=== PATIENT | female | born 1985 | race Caucasian/White ===

== ENCOUNTER 2023-10-21 16:55 | Observation (INO) | payer MEDICAID, SELFPAY ==
[2023-10-21] VITALS (11 sets, daily range): BP systolic 106–122; BP diastolic 62–81; PULSE 98–115; RESP 15–23; TEMP 36.6–37.7; O2SAT 97–100; BMI 22.4; BMI 21.6
--- NOTE | 2023-10-21 17:57 | ED.VIS.GI ---
HPI HPI - GI History of Present Illness Chief Complaint: Abd Pain Narrative Narrative: 38-year-old female presenting with abdominal pain. She states in the lower abdomen initially and it radiates to the left lower quadrant and left flank. Patient denies history of kidney stones. She denies dysuria and hematuria. Patient states she has been constipated but did have a bowel movement today. No fevers, chills, nausea, vomiting. Patient has not taken anything for pain or for constipation. No surgical history in her abdomen. She does not believe she is . Patient does state that she is G7, P7 with last August 05, 2022. Patient had some menstrual bleeding which she states stopped on the . She states she does not have normal menstrual cycles because she is breast-feeding. Patient is a transplant from [place] and does not have critical care unit nurse established here. PFSH PFSH Medical History no medical history Home Medications NK 10/21/23 [History Last Taken Unknown] Allergy/AdvReac Type Severity Reaction Status Date / Time egg Allergy Unknown Other Verified 10/21/23 16:55 Social History Smoking Status: Unknown if ever smoked ROS ROS ED Constitutional Constitutional ED: Denies chills, fever(s) or sweats Eyes Eyes: Denies blurry vision or change in vision ENT ENT ED: Denies ear pain or sore throat Cardiovascular Cardiovascular: Denies chest pain, palpitations or racing heartbeat Respiratory/Chest Respiratory/Chest: Denies cough, dyspnea or sputum Gastrointestinal Gastrointestinal: Reports abdominal pain and constipation; Denies diarrhea, nausea or vomiting Genitourinary Genitourinary ED: Denies dysuria, hematuria or urinary frequency Musculoskeletal Musculoskeletal: Denies arthralgias, myalgias or neck pain Integumentary Denies abscess, Abrasions or rash Neurologic Neurologic: Denies headache(s), paresthesias or weakness Psychiatric Psychiatric: Denies anxiety, depression, suicidal ideation or suicidal thoughts Endocrine Endocrinology: Denies polydipsia or polyuria EXAM Physical Exam Const Vital Signs: 10/21/23 16:56 10/21/23 18:12 10/21/23 19:36 Temperature 97.9 F 98.1 F Temperature Source Temporal Oral Pulse Rate 108 H 105 H 100 Respiratory Rate 16 20 H 23 H Blood Pressure 122/76 H 106/65 110/62 Blood Pressure Mean 91 78 78 Blood Pressure Source Monitor Blood Pressure Position Semi-Fowlers Blood Pressure Location Right Arm Pulse Ox 100 98 100 Oxygen Delivery Method Room Air Room Air 10/21/23 19:52 Temperature 98.1 F Temperature Source Pulse Rate 102 H Respiratory Rate 16 Blood Pressure 110/62 Blood Pressure Mean 78 Blood Pressure Source Blood Pressure Position Blood Pressure Location Pulse Ox 100 Oxygen Delivery Method Positive well nourished and well developed General Appearance ED: well developed; Negative for pallor HEENT Reports moist mucous membranes Neck no lymphadenopathy Resp normal respiratory effort Cardio regular rate and regular rhythm GI Palpation: tender epigastric, LLQ and periumbilical Neuro CN's II-XII intact bilaterally Sensorium / Orientation: alert Psych mental status grossly normal Skin no wounds General Skin Exam: Negative for jaundice or pallor MDM MDM MDM Narrative Medical decision making narrative: 38-year-old female presenting with left flank pain. She was not particularly tender on initial examination. We initially were that I do acute abdominal series and some Bentyl however the patient get up to give a urine sample and became orthostatic and fainted. Patient was helped back to the room. She did appear pale. hCG came back with a positive. Given the patient's near syncopal event and positive test who is a high concern for ectopic . I discussed this with Dr. Denise 184. He request that I call back when the ultrasound is performed. CBC shows leukocytosis of 16.7 which is also discussed with him. Hemoglobin stable at 13.7. Platelets are normal at 86. Will obtain a quantitative hCG. Patient was given fentanyl and Zofran. Patient send ultrasound and and the hvac field service technician called me and told me it was a ruptured ectopic prior to the ultrasound read. Dr. Denise was made aware he will come to take the patient to the OR. Patient's hCG came back at 2879. Renal function normal. Potassium slight low at 3.2 patient counseled on all findings. She does understand she will need to go to the OR for ruptured ectopic . Impression: 1. First trimester 2. Ruptured ectopic 3. Leukocytosis 4. Near syncope Lab Data Attestation: I reviewed the patient's lab results. Labs: Laboratory Results - last 24 hr 10/21/23 10/21/23 10/21/23 18:14 18:20 18:33 WBC 16.7 H RBC 4.74 Hgb 13.7 Hct 41.0 MCV 86.5 MCH 28.9 MCHC 33.4 RDW Std Deviation 41.5 RDW Coeff of Esau 13.2 Plt Count 256 MPV 10.2 Immature Gran % (Auto) 0.400 Neut % (Auto) 78.6 H Lymph % (Auto) 14.9 L [place] % (Auto) 4.8 Eos % (Auto) 0.9 Baso % (Auto) 0.4 Absolute Neuts (auto) 13.1 H Absolute Lymphs (auto) 2.48 Nucleated RBC % 0 Sodium 138 Potassium 3.2 L Chloride 106 Carbon Dioxide 24.0 Anion Gap 8 BUN 10 Creatinine 0.79 Estim Creat Clear Calc 86.03 Est GFR (MDRD) Af Amer 104 Est GFR (MDRD) Non-Af 86 BUN/Creatinine Ratio 12.6 Glucose 128 H Calcium 9.8 Total Bilirubin 1.00 AST 14 L ALT 18 Alkaline Phosphatase 96 Total Protein 7.9 Albumin 4.0 Globulin 3.9 Albumin/Globulin Ratio 1.0 Lipase 35 HCG, Quant 2879 H Urine Color Yellow Urine Clarity Clear Urine pH 5.0 Ur Specific [place] 1.020 Urine Protein Negative Urine Glucose (UA) Normal Urine Ketones 5 H Urine Occult Blood 25 H Urine Nitrite Negative Urine Bilirubin Negative Urine Urobilinogen Normal Ur Leukocyte Esterase Negative Urine RBC 0-5 SEEN Urine WBC 0 SEEN Ur Squamous Epith Cells 0 SEEN Urine Bacteria 0 SEEN Urine Mucus 0 SEEN Urine Test Positive H Radiography Diagnostic Testing: Clinical Impression(s) from Imaging Studies Obstetrics Ultrasound 10/21/23 18:27 IMPRESSION: Findings suspicious for ruptured ectopic in the left adnexa. Electronically Signed: Noreen Boyer MD at 20:04 EST Reading Location ID and State: [id number] / Tel , Service support , Discharge Plan Disposition Disposition: Acute Care Hospital [facility] Discharge Date/Time: 10/21/23 20:12
[2023-10-21] MEDS: Dicyclomine 20 MG/2 ML Vial IM (18:09)
--- NOTE | 2023-10-21 18:10 | ED.RN ---
notified that pt. had a near syncopal episode in bathroom, pt. became very dizzy, pale and diaphoretic.
[2023-10-21 18:23] LABS: Bacteria 0 SEEN /hpf (None Seen); Mucous, Urine 0 SEEN /hpf (<or=2+); Squamous Epithelial Cells - UA 0 SEEN /hpf (5-10); White Blood Cells 0 SEEN /hpf (0-5)
[2023-10-21] MEDS: 0.9% Normal Saline (1000mL) 1,000 ML 1000 ML IV (18:24)
[2023-10-21] MEDS: Ketorolac 15 MG/ML Vial IV (18:24)
[2023-10-21 18:26] LABS: Color, Urine Yellow (Yellow); Glucose, Dipstick Normal (Normal); Ketone-Dipstick 5 mg/dl (Negative); Leukocyte Esterase-Dipstick Negative /ul (Negative); Nitrite-Dipstick Negative (Negative); Occult Blood-Urine 25 /ul (Negative); Protein-Dipstick Negative (Negative); Urine Bilirubin Dipstick Negative (Negative); Urine Clarity Clear (Clear); Urine Urobilinogen Normal (Normal)
[2023-10-21 18:27] LABS: Absolute Lymphocyte Count 2.48 X10^3/uL (0.83-4.51); Absolute Neutrophil Count 13.1 X10^3/uL (2.0-7.7); Basophil# 0.07 X10^3/uL; Basophil% 0.4 % (0-1); Eosinophil# 0.15 X10^3/uL; Eosinophils% 0.9 % (0-5); Hemoglobin 13.7 g/dL (12.0-15.0); Lymphocyte # 2.48 X10^3/ul (0.83-4.51); Lymphocyte % 14.9 % (19-41); Mean Corp Hgb Conc 33.4 g/dL (32-36); Mean Corpuscular Hgb 28.9 pg (27.0-32.0); Mean Corpuscular Volume 86.5 fL (81-99); Mean Platelet Vol. 10.2 fl (6.2-12.0); Monocyte% 4.8 % (0-10); NRBC Flagged by Analyzer 0 % (0-5); Neutrophil # 13.09 X10^3/uL (2.7-7.7); Neutrophil % 78.6 % (47-70); Platelet Count 256 K/mm3 (150-450); RBC Distribution Width CV 13.2 % (11.6-14.6); RBC Distribution Width SD 41.5 fl (35.1-43.9); Red Blood Count 4.74 M/mm3 (4.2-5.4); White Blood Count 16.7 K/mm3 (4.4-11.0)
--- NOTE | 2023-10-21 18:27 | US_ITS ---
We are attempting to reach an attending provider to discuss findings. An addendum with communication details will be sent when the communication is complete. EXAM: US , TRANSVAGINAL CLINICAL INDICATION: r/o ectopic, pelvic pain TECHNIQUE: Real-time transvaginal obstetrical ultrasound of the maternal pelvis and a first trimester with image documentation. Transvaginal imaging was used for better evaluation of the fetus and adnexa. COMPARISON: No relevant prior studies available. FINDINGS: Uterus is normal in size and echogenicity measuring 8.5 x 4.2 x 5.9 cm. Moderate fluid within the endometrial cavity. No intrauterine gestation. OVARIES: Right ovary is enlarged measuring 6.5 x 4.1 x 6 cm. Right ovarian cysts measure up to 3.7 cm. Complex lesion in the left adnexa measuring approximately 4.3 x 3.5 cm, not adequately characterized. No hypervascularity on color Doppler. FREE FLUID: Large amount of free fluid in the cul-de-sac. US/Transvaginal w/Preg US IMPRESSION: Findings suspicious for ruptured ectopic in the left adnexa. Electronically Signed: Noreen Boyer MD at 20:04 EST Reading Location ID and State: [id number] / Tel , Service support ,
[2023-10-21 18:31] LABS: Red Blood Cells-Urine 0-5 SEEN /hpf (0-5)
[2023-10-21 18:32] LABS: Internal QC Validated? YES +Cl - CLEAR BKGD
[2023-10-21] MEDS: fentaNYL 100 MCG/2 ML Ampul 50 MCG IV (18:37)
[2023-10-21] MEDS: Ondansetron 4 MG/2 ML Vial IV (18:38)
[2023-10-21 18:42] LABS: Pregnancy, Urine Positive Negative
[2023-10-21 19:09] LABS: AST(SGOT) 14 U/L (15-37); Alanine Aminotransfer ALT/SGPT 18 U/L (13-56); Alkaline Phosphatase 96 U/L (45-117); Anion Gap 8 (5-15); BUN 10 mg/dL (7-18); BUN/Creat Ratio 12.6 RATIO (10-20); Calcium,Total 9.8 mg/dL (8.5-10.1); Chloride 106 mmol/L (98-107); Creatinine, Serum 0.79 mg/dL (0.55-1.02); EST Glomerular Filtration Rate 86 mL/min (>60); Est Glom Filt Rate - Afr Amer 104 mL/min (>60); Estimated Creatinine Clearance 86.03 ml/min; Globulin 3.9 g/dL (2.2-4.2); Glucose 128 mg/dL (74-106); Lipase 35 U/L (13-75); Potassium 3.2 mmol/L (3.5-5.1); Protein, Total 7.9 g/dL (6.4-8.2); Sodium Level 138 mmol/L (136-145)
[2023-10-21 19:26] LABS: hCG Titer Quant., Serum 2879 mIU/mL (1-3)
--- NOTE | 2023-10-21 21:08 | HP.PCM.OB_ITS ---
HPI - General General Date of Service: 10/21/23 Chief Complaint: Ruptured Left Ectopic HPI Narrative JOSEY POOLE, is a 38 F who presents to the ER with LLQ pain which became more severe this pm after having on and off pain for the past week. She passed out in the restroom after coming to the ER. She denies any heavy vaginal bleeding although she has had some light vaginal bleeding for the past 3 weeks. Her pain became so severe this PM that she came to the ER. PFSH PFSH Medical History no medical history Home Medications NK 10/21/23 [History Last Taken Unknown] Allergy/AdvReac Type Severity Reaction Status Date / Time egg Allergy Unknown Other Verified 10/21/23 16:55 no significant family history no surgical history Social History Smoking Status: Unknown if ever smoked ROS Constitutional Constitutional: Reports systems reviewed and no addt'l complaints, except as documented ENT HEENT: Reports systems reviewed and no addt'l complaints, except as documented Cardiovascular Cardiovascular: Reports systems reviewed and no addt'l complaints, except as documented Respiratory/Chest Respiratory/Chest: Reports systems reviewed and no addt'l complaints, except as documented Gastrointestinal Gastrointestinal: Reports systems reviewed and no addt'l complaints, except as documented Genitourinary Genitourinary: Reports systems reviewed and no addt'l complaints, except as documented Musculoskeletal Musculoskeletal: Reports systems reviewed and no addt'l complaints, except as documented Integumentary Integumentary: Reports systems reviewed and no addt'l complaints, except as documented Psychiatric Psychiatric: Reports systems reviewed and no addt'l complaints, except as documented Allergic/Immunologic Allergic/Immunologic: Reports systems reviewed and no addt'l complaints, except as documented Vital Signs Vital Signs Vital Signs: 10/21/23 16:56 10/21/23 18:12 10/21/23 19:36 Temperature 97.9 F 98.1 F Temperature Source Temporal Oral Pulse Rate 108 H 105 H 100 Respiratory Rate 16 20 H 23 H Blood Pressure 122/76 H 106/65 110/62 Blood Pressure Mean 91 78 78 Blood Pressure Source Monitor Blood Pressure Position Semi-Fowlers Blood Pressure Location Right Arm Pulse Ox 100 98 100 Oxygen Delivery Method Room Air Room Air 10/21/23 19:52 Temperature 98.1 F Temperature Source Pulse Rate 102 H Respiratory Rate 16 Blood Pressure 110/62 Blood Pressure Mean 78 Blood Pressure Source Blood Pressure Position Blood Pressure Location Pulse Ox 100 Oxygen Delivery Method Weight Weight: 135 lb Body Mass Index (BMI) 22.4 Physical Exam Const alert and oriented x3 Constitutional Narrative: uncomfortable General Appearance: cooperative Exam Limitations: no limitations HEENT normocephalic Eyes PERRL Neck full ROM Lymph Lymphatic: no lymphadenopathy noted Chest inspection of chest normal Resp normal respiratory effort Cardio regular rate Rate: tachycardic GI soft to palpation Palpation: guarding and rebound tenderness present Extremity normal to inspection and full ROM Neuro moves all extremities, no focal motor deficits, no sensory deficits noted and gait normal Psych mental status grossly normal, affect normal, speech normal and activity/motor b ehavior normal Labs Labs Labs: Blood Type Pending Antibody Screen NEGATIVE Hct 41.0 % (37-47) Hgb 13.7 g/dL (12.0-15.0) Obstetrics Ultrasound Assessment & Plan (1) Ruptured left tubal ectopic causing hemoperitoneum: COMMENT: Quant HCG about 2800. U/S shows no IUD, hematoperitoneum and suggestive of left ectopic. PLAN: Plan Plan L/S ectopic removal, possible laparotomy, possible transfusion discussed. Discussed RBAs at length and all questions answered. Procedure Criteria Type of Procedure Procedure Type: Elective Elective Risks - COVID COVID Risk Discussion: The surgeon/proceduralist and patient have discussed in detail the risk of exposure to and/or potential harm posed by the COVID-19 virus with having a surgery/procedure at this time versus the risk of delaying the herman rgery/procedure. It is not possible to know either the risk of delaying the surgery or procedure or chance of getting an infection with perfect accuracy, but a joint decision was made between the patient and the surgeon/proceduralist to proceed at this time with the scheduled surgery/procedure as indicated on the consent form.
[2023-10-21] MEDS: Cefazolin 2 GM in 0.9% Normal Saline (100mL Bag) 100 ML IV (21:13)
--- NOTE | 2023-10-21 21:30 | FAL_PTH ---
PATHOLOGY RESULTS PATIENT: JOSEY POOLE LOC: MS3 U#:[id number] AGE/SX: 38/F ROOM: CA318 RE10/21/[address]: Dr. Ash Denise MD : 1985 BED: 1 DIS: 10/22/2023 SPEC #: [id number] RECD: 10/24/23 08:40 STATUS: SHAILA AVALOS #: [id number] MCKAYLA: 10/21/23 21:[address]: Ash Denise DEPT: SURGICAL PATHOLOGY RECD BY: Fior Rangel ENTERED: 10/24/23 08:40 SP TYPE: ECTOPIC OTHR DR: No Primary Care Phys Tissues: ECTOPIC PREG Procedures: Surgery Specimen Level IV HEADER OPERATION: Laparoscopic removal ectopic PRE-OP DIAGNOSIS: Ruptured left ectopic TISSUE SUBMITTED: Left fallopian tube and products of conception MICROSCOPIC DIAGNOSIS Left fallopian tube, salpingectomy: Intraluminal rare chorionic villi, decidual tissue and trophoblastic cells. See comment. AM:arpit 10/25/2023 COMMENT The findings are consistent with intratubal . Clinical correlation is suggested. MICROSCOPIC DESCRIPTION Slides are reviewed. GROSS DESCRIPTION Received in fixative is one container labeled with the patient's name and designated left fallopian tube and products of conception. The specimen consists of two irregular and elongated fragments of patel tissue. The smaller fragment measures 2.2 x 1.7 x 0.8 cm. The second fragment consists of a fallopian tube measuring 7.0 cm in length and 1.0 cm in diameter. The smaller fragment is submitted in its entirety in cassette 1. The fallopian tube is serially sectioned and totally submitted in cassettes 2-4. / AM:arpit 10/24/2023 TC:5 CPT: 18328
[2023-10-21] MEDS: Bupivacaine Mpf 0.5% 30 ML VIAL (22:05)
--- NOTE | 2023-10-21 22:12 | OP.PCM_ITS ---
Problems Associated Problem List Diagnoses (1) Ruptured left tubal ectopic causing hemoperitoneum: Report of Operation Date of Procedure: 10/21/23 Pre-Operative Diagnosis: Ruptured Left Ectopic , Hematoperitoneum Post-Operative Diagnosis: Ruptured Left Ectopic , Hematoperitoneum Surgery/Procedure Performed:: Laparoscopic Ectopic Removal with Left Salpingectomy and Evacuation of Hematoperitoneum Description of Surgical Findings:: Approximately 750 cc of blood in the pelvis and abdomen. Ruptured left ectopic which was actively bleeding. Normal-appearing right fallopian tube and ovary. 4 cm corpus luteal cyst on right ovary. Normal left ovary. Normal- appearing uterus. Surgeon: Ash Denise school photographs detailer: Juliette De La Paz Type of Anesthesia: General Anesthesiologist: Sumeet Adkins Specimen's removed: Left fallopian tube and ectopic . Estimated Blood Loss (mL): 500cc Fluids Replaced: Crystalalloid Description of Procedure: Indications: This is a 38 year old patient who has the above diagnosis. She is aware of the risk and possible complications of this procedure including bleeding, infection, and injury to surrounding structures as well as possible need for blood transfusion. All questions were answered to consider the patient well-informed. Procedure: The patient was taken to the operating room where after induction of general anesthesia, she was placed in the dorsolithotomy position and prepped and draped in the usual sterile fashion. The bladder was drained of approximately 50 cc of clear yellow urine with a catheter. Anterior cervix was grasped with the tenaculum. ZUMI cannula was placed and attention was turned toward the laparoscopic portion of the procedure. Approximately 20 cc of half percent ropivacaine was injected subumbilically, suprapubically and midway between. A 5 mm bladeless trocar was placed subumbilically and intraperitoneal placement confirmed. Copious amounts of blo od was noted in the abdominal cavity upon entry. After CO2 insufflation was complete, a 5 mm bladeless trocar was introduced suprapubically. A 5 mm bladeless port was then placed midway between these 2 ports for tubal manipulation. The left ectopic with its active bleeding was identified and an Enseal device was used to cauterize the mesosalpinx. This stopped all bleeding and a 12 mm trocar was placed suprapubically after removing the 5 mm port at the site. The fallopian tube and ectopic were removed through this port and a 10 mm suction curette was used to remove most of the blood in the peritoneal cavity. The peritoneal cavity and upper abdomen were examined and no bleeding was noted however there was noted to be some blood above the diaphragm and the patient was placed in reverse Trendelenburg which allowed removal of another 200 to 300 cc of blood. Photographs were taken. Laparoscopic instruments with as much CO2 gas as possible and the 12 mm port site was closed with 0 Vicryl suture [id number] fashion; skin incisions were closed with running 4-0 Monocryl suture. Op sites were placed across the incisions. Vaginal instruments were removed. The patient tolerated the procedure well was taken to recovery room in satisfactory condition and sponge instrument and needle counts were all reportedly correct. Estimated blood loss for the case was minimal but approximately 500 cc of blood from the ruptured ectopic was removed in the course of the procedure. There were no apparent complications of the surgery. Ancef 2 g IV was given prior to beginning the operative procedure. Specimen to pathology was left fallopian tube and ectopic . Grafts/Implants Used: None Complications None
--- OUTSIDE RECORDS SUMMARY | 2023-10-21 23:12 | XMS RPT_ITS | CCD ---
Author Name Unknown Address [address] [place] [address] Organization [facility] Care Team Providers Care Electron Gun Inspector Name Role Phone DAMASO DESHPANDE Unavailable Unavailable ROBUSTO, G PIETER Unavailable Unavailable DESHPANDE, DAMASO Unavailable Unavailable ROBUSTO, G PIETER Unavailable Unavailable DESHPANDE, DAMASO Unavailable Unavailable ROBUSTO, G PIETER Unavailable Unavailable ROBUSTO, G PIETER Unavailable Unavailable DESHPANDE, DAMASO Unavailable Unavailable ROBUSTO, G PIETER Unavailable Unavailable DESHPANDE, DAMASO Unavailable Unavailable DESHPANDE, DAMASO Unavailable Unavailable Results Test Name Value Interpretation Reference Range Facil ity Encounters Encounter Date Encounter Type Care Provider Facility Start: 02-06-2018 Ambulatory Venita STAPLETON ROBUSTO Facil ity:[facility] Start: 01-31-2018 End: 02-01-2018 Ambulatory DAMASO DESHPANDE Facility:[id number] Start: 01-31-2018 End: 02-01-2018 Ambulatory DAMASO DESHPANDE Facility:[id number] Summary Purpose Family History No Family History Records FoundNo Family History Records Found Advance Directives No Advanced Directives Records FoundNo Advanced Directives Records Found Additional Source Comments INFORMATION SOURCE (unrecogn ized section and content) DATE CREATED AUTHOR AUTHOR'S JAELYN ATKEDAR 02/17/2018 [facility] FOR RECORDS PERTAINING TO PATIENTS WHO ARE OR HAVE BEEN ENROLLED IN A CHEMICAL DEPENDENCY/SUBSTANCEABUSE PROGRAM, SOME INFORMATION MAY BE OMITTED. This clinical summary was aggregated from multiple sources. Caution should be exercised in using it in the provision of clinical care. This summary normalizes information from multiple sources, and as a consequence, information in this document may materially change the coding, format and clinical context of patient data. In addition, data may be omitted in some cases. CLINICAL DECISIONS SHOULD BE BASED ON THE PRIMARY CLINICAL RECORDS. [facility]. provides no warranty or guarantee of the accuracy or completeness of information in this document.
[2023-10-22] VITALS (10 sets, daily range): BP systolic 81–113; BP diastolic 41–70; PULSE 77–107; RESP 15–20; TEMP 36.5–37.1; O2SAT 98–100
--- NOTE | 2023-10-22 00:23 | EKG12_ITS ---
Test Reason : cp Blood Pressure : / mmHG Vent. Rate : 082 BPM Atrial Rate : 082 BPM P-R Int : 106 ms QRS Dur : 078 ms QT Int : 382 ms P-R-T Axes : 070 086 065 degrees QTc Int : 446 ms Sinus rhythm with short NV Otherwise normal ECG No previous ECGs available Confirmed by Mark Jade ([id number]), medical transcription editor SHANTE GARCIA ([id number]) on 10/25/2023 9:45:27 AM Referred By: Howie Confirmed By:Mark Jade
[2023-10-22] MEDS: Acetaminophen 500 MG Tablet 1000 MG PO ×3 (00:35→12:28)
[2023-10-22] MEDS: Dextrose 5%-Lactated Ringers 1,000 ML 125 ML IV (01:21)
[2023-10-22] MEDS: Ketorolac 30 MG/ML Syringe IV ×2 (03:54→12:29)
--- NOTE | 2023-10-22 08:43 | PN.OBGYN_ITS ---
Subjective Subjective Pt without complaints. Tolerating diet well. Up at bedside voiding on own. Denies orthostatic changes. No need for narcotics to control pain--tylenol ok. About ready to go home. Objective Data Objective Data Wounds are clean, dry and intact without bleeding. Minimal vaginal bleeding. Vital Signs: Vital Signs Temp Pulse Resp BP Pulse Ox O2 Del Method O2 Flow Rate 98.7 F 83 16 91/52 L 98 Room Air 2 10/22/23 07:40 10/22/23 07:40 10/22/23 07:40 10/22/23 07:55 10/22/23 07:40 10/22/23 07:40 10/22/23 03:29 Oxygen Flow Rate (L/min) 2 Oxygen Delivery Method Room Air Weight: 138 lb 3.677 oz Body Mass Index (BMI) 21.6 Intake & Output: Intake and Output for Last 24 Hours 10/20/23 10/21/23 10/22/23 23:59 23:59 23:59 Intake Total 1110 / 1310 300 / 300 Output Total 50 / 50 700 / 700 Balance 1060 / 1260 -400 / -400 Lab / Micro Data 10/21/23 18:20 10/21/23 18:20 Labs: Laboratory Results - last 24 hr 10/21/23 18:14: Urine Color Yellow, Urine Clarity Clear, Urine pH 5.0, Ur Specific [place] 1.020, Urine Protein Negative, Urine Glucose (UA) Normal, Urine Ketones 5 H, Urine Occult Blood 25 H, Urine Nitrite Negative, Urine Bilirubin Ne gative, Urine Urobilinogen Normal, Ur Leukocyte Esterase Negative, Urine RBC 0-5 SEEN, Urine WBC 0 SEEN, Ur Squamous Epith Cells 0 SEEN, Urine Bacteria 0 SEEN, Urine Mucus 0 SEEN, Urine Test Positive H 10/21/23 18:20: WBC 16.7 H, RBC 4.74, Hgb 13.7, Hct 41.0, MCV 86.5, MCH 28.9, MCHC 33.4, RDW Std Deviation 41.5, RDW Coeff of [place]au 13.2, Plt Count 256, MPV 10.2, Immature Gran % (Auto) 0.400, Neut % (Auto) 78.6 H, Lymph % (Auto) 14.9 L, [place] % (Auto) 4.8, Eos % (Auto) 0.9, Baso % (Auto) 0.4, Absolute Neuts (auto) 13.1 H, Absolute Lymphs (auto) 2.48, Nucleated RBC % 0, Sodium 138, Potassium 3.2 L, Chloride 106, Carbon Dioxide 24.0, Anion Gap 8, BUN 10, Creatinine 0.79, Estim Creat Clear Calc 86.03, Est GFR (MDRD) Af Amer 104, Est GFR (MDRD) Non-Af 86, BUN/Creatinine Ratio 12.6, Glucose 128 H, Calcium 9.8, Total Bilirubin 1.00, AST 14 L, ALT 18, Alkaline Phosphatase 96, Total Protein 7.9, Albumin 4.0, Globulin 3.9, Albumin/Globulin Ratio 1.0, Lipase 35 10/21/23 18:33: HCG, Quant 2879 H 10/21/23 20:08: Antibody Screen NEGATIVE, Crossmatch See Detail Radiography Diagnostic Testing: Radiology Impression Obstetrics Ultrasound 10/21/23 18:27 IMPRESSION: Findings suspicious for ruptured ectopic in the left adnexa. Electronically Signed: Noreen Boyer MD at 20:04 EST Reading Location ID and State: [place] / Tel , Service support , ADDENDUM: 10/21/232015 IMPRESSION: Findings suspicious for ruptured ectopic in the left adnexa. N.B. : Luis F Kendrick DO, confirmed on 10/21/2023 20:09:58 (ET) that the referring physician received the results and does not require a verbal communication. Electronically Signed: Noreen Boyer MD at 20:04 EST Reading Location ID and State: [place] MD Tel , Service support , Assessment & Plan (1) Ruptured left tubal ectopic causing hemoperitoneum: COMMENT: Quant HCG about 2800. U/S shows no IUD, hematoperitoneum and sugg estive of left ectopic. PLAN: Will check CBC and repeat potassium and likely discharge to home later this AM. Discussed surgery at length and need for post op follow-up in 2-3 weeks with Julian SCHOOL MANAGER. Plans to use ibuprophen and Tylenol at home for pain control. Recommended supplemental iron for 3-4 weeks. To call with fever, inability to urinate or have BM and for increased redness about incisions. To remove op-site dressings in 5-7 days or if bothering her.
--- NOTE | 2023-10-22 08:53 | PCM.DC.SUM ---
Providers Date of Admission: 10/21/23 Date of Discharge: 10/22/23 Primary Care Physician: No Primary Care Phys Reason For Visit: RUPTURED EPTOPIC Diagnosis Discharge Diagnosis (1) Ruptured left tubal ectopic causing hemoperitoneum: Status: Acute Code(s): O00.102 - Left tubal without intrauterine ; K66.1 - Hemoperitoneum Plan: Will check CBC and repeat potassium and likely discharge to home later this AM. Discussed surgery at length and need for post op follow-up in 2-3 weeks with [facility]. Plans to use ibuprophen and Tylenol at home for pain control. Recommended supplemental iron for 3-4 weeks. To call with fever, inability to urinate or have BM and for increased redness about incisions. To remove op-site dressings in 5-7 days or if bothering her. Medications at Discharge Home Medications NK 10/21/23 Hospital Course Summary of Care Provided Hospital Course: Pt presented to the emergency room with a ruptured ectopic; assed out in ER, slightly tachycardic. L/S left salpingectomy with ectopic removal and hematoperitoneum evacuation done 10/21/23 in PM. Bleeding left ectopic noted and controlled. Observed overnight and hgb and K to be checked before discharge. No blood transfusion during hospitalization. To follow-up with [facility] in 2-3 week. Weight / BMI Weight Weight: 138 lb 3.677 oz Body Mass Index (BMI) 21.6 ABG / Lab / Microbiology Data 10/21/23 18:20 10/21/23 18:20 Laboratory: Laboratory Results - last 24 hr 10/21/23 18:14: Urine Color Yellow, Urine Clarity Clear, Urine pH 5.0, Ur Specific [place] 1.020, Urine Protein Negative, Urine Glucose (UA) Normal, Urine Ketones 5 H, Urine Occult Blood 25 H, Urine Nitrite Negative, Urine Bilirubin Negative, Urine Urobilinogen Normal, Ur Leukocyte Esterase Negative, Urine RBC 0-5 SEEN, Urine WBC 0 SEEN, Ur Squamous Epith Cells 0 SEEN, Urine Bacteria 0 SEEN, Urine Mucus 0 SEEN, Urine Test Positive H 10/21/23 18:20: WBC 16.7 H, RBC 4.74, Hgb 13.7, Hct 41.0, MCV 86.5, MCH 28.9, MCHC 33.4, RDW Std Deviation 41.5, RDW Coeff of [place] 13.2, Plt Count 256, MPV 10.2, Immature Gran % (Auto) 0.400, Neut % (Auto) 78.6 H, Lymph % (Auto) 14.9 L, [place] % (Auto) 4.8, Eos % (Auto) 0.9, Baso % (Auto) 0.4, Absolute Neuts (auto) 13.1 H, Absolute Lymphs (auto) 2.48, Nucleated RBC % 0, Sodium 138, Potassium 3.2 L, Chloride 106, Carbon Dioxide 24.0, Anion Gap 8, BUN 10, Creatinine 0.79, Estim Creat Clear Calc 86.03, Est GFR (MDRD) Af Amer 104, Est GFR (MDRD) Non-Af 86, BUN/Creatinine Ratio 12.6, Glucose 128 H, Calcium 9.8, Total Bilirubin 1.00, AST 14 L, ALT 18, Alkaline Phosphatase 96, Total Protein 7.9, Albumin 4.0, Globulin 3.9, Albumin/Globulin Ratio 1.0, Lipase 35 10/21/23 18:33: HCG, Quant [id number] H 10/21/23 20:08: Antibody Screen NEGATIVE, Crossmatch See Detail Radiography Diagnostic Testing: Radiology Impression Obstetrics Ultrasound 10/21/23 18:27 IMPRESSION: Findings suspicious for ruptured ectopic in the left adnexa. Electronically Signed: Noreen Boyer MD at 20:04 EST Reading Location ID and State: [id number] MD Tel , Service support , ADDENDUM: 10/21/232015 IMPRESSION: Findings suspicious for ruptured ectopic in the left adnexa. N.B. : Luis F Kendrick DO, confirmed on 10/21/2023 20:09:58 (ET) that the referring physician received the results and does not require a verbal communication. Electronically Signed: Noreen Boyer MD at 20:04 EST Reading Location ID and State: [place]una MD Tel , Service support , D/C Instructions Discharge Diet: No restrictions Discharge Activity: Return to Normal Activity, May Drive (in 2-3 days), May Shower and May Take a Tub Bath Return to work on: 10/26/23 May resume sexual activity in: 1-2 weeks Lifting Restricted to (Lbs): 25 (for 2 weeks) Call your doctor if your incision/area has: Increased Pain/ Swelling Call your doctor if you observe: Fever of 101 or Higher, Inability to urinate, Inability to have a bowel movement and Using more than 1 pad per hour Remove Dressing in: 1 week (ok to remove Op-site dressings in 5-7 days or if it is bothersome; ok to use Band-aid over incisions after removal if clothing is bothersome) Cleanse incision/area with: Soap & Water Additional Instructions: OK to use Ibuprophen 800 mg every 8 hours as needed for pain; if this is insufficient then add Tylenol per package instructions. If this is insufficient, then call or proceed to ER. Use iron sulfate 325 mg one to three times daily as tolerated for 3-6 weeks. Please Follow Up With: Lou Steven DO When: 2-3 weeks Meaningful Use Info Meaningful Use Diagnoses (Choose all that apply): None applicable Discharge Plan Admission Admit Date/Time: 10/21/23 22:45 Attending Provider: Ash Denise Primary Care Provider: Care Physician,Leisa Primary Discharge Orders/Prescriptions Prescriptions: No Action NK Referrals / Follow Up: Care Physician,No Primary [Primary Care Provider] - Disposition Disposition (needs filled in before D/C Order can be placed): Home, Self Care
[2023-10-22 09:09] LABS: Absolute Lymphocyte Count 1.35 X10^3/uL (0.83-4.51); Basophil# 0.02 X10^3/uL; Basophil% 0.2 % (0-1); Hematocrit 28.4 % (37-47); Hemoglobin 9.2 g/dL (12.0-15.0); Lymphocyte # 1.35 X10^3/ul (0.83-4.51); Lymphocyte % 10.4 % (19-41); Mean Corp Hgb Conc 32.4 g/dL (32-36); Mean Corpuscular Volume 86.6 fL (81-99); Mean Platelet Vol. 9.6 fl (6.2-12.0); Monocyte# 0.64 X10^3/uL; Monocyte% 4.9 % (0-10); NRBC Flagged by Analyzer 0 % (0-5); Neutrophil # 10.97 X10^3/uL (2.7-7.7); Platelet Count 178 K/mm3 (150-450); RBC Distribution Width CV 13.2 % (11.6-14.6); Red Blood Count 3.28 M/mm3 (4.2-5.4)
[2023-10-22 09:36] LABS: Anion Gap 3 (5-15); BUN 7 mg/dL (7-18); BUN/Creat Ratio 11.7 RATIO (10-20); Calcium,Total 8.2 mg/dL (8.5-10.1); Chloride 115 mmol/L (98-107); EST Glomerular Filtration Rate 119 mL/min (>60); Est Glom Filt Rate - Afr Amer 144 mL/min (>60); Estimated Creatinine Clearance 122.42 ml/min; Glucose 146 mg/dL (74-106); Potassium 3.8 mmol/L (3.5-5.1); Sodium Level 141 mmol/L (136-145)
== END 2023-10-22 14:01 | disposition home or self-care (01) ==
LOC: ED 17:38 → SDC 20:00 → ACINP 20:02 → SDC 23:10 → ACINP 23:10 → MS3 10-22 09:04
PROVIDERS: Admitting Provider Obstetrics & Gynecology; Emergency Provider Student in an Organized Health Care Education/Training Program; Visit Provider Obstetrics & Gynecology
PROC: 10T24ZZ Resection of Products of Conception, Ectopic, Percutaneous Endoscopic Approach (ICD-10-PCS; CPT 59150; principal; 2023-10-21 21:15)
DX: O00.102 Left tubal pregnancy without intrauterine pregnancy (principal); D72.829 Elevated white blood cell count, unspecified; K66.1 Hemoperitoneum; R55 Syncope and collapse; O99.891 Other specified diseases and conditions complicating pregnancy; N83.11 Corpus luteum cyst of right ovary
CPT/HCPCS: 59151; 00840; C1760; 76817; 80048; 80053; 81001; 81025; 83690; 84702; 85025; 86850; 86900; 86901; 86920; 86922; 88305; 93005; 96372; 96374; 96375; 96376; 99221; 99285; J7030; A4216; G0378; J2405

== ENCOUNTER → 2025-06-18 | Outpatient (CLI) | payer MEDICAID, SELFPAY ==
[2025-06-18 11:08] LABS: hCG Titer Quant., Serum 480 mIU/mL (<9 non-preg)
== END | disposition home or self-care (01) ==
LOC: BWCLAB 09:04
PROVIDERS: Visit Provider Advanced Practice Midwife
DX: Z87.59 Personal history of other complications of pregnancy, childbirth and the puerperium (principal)
CPT/HCPCS: 36415; 84702

== ENCOUNTER → 2025-06-20 | Outpatient (CLI) | payer MEDICAID, SELFPAY ==
[2025-06-20 13:01] LABS: hCG Titer Quant., Serum 1073 mIU/mL (<9 non-preg)
== END | disposition home or self-care (01) ==
PROVIDERS: Advanced Practice Midwife; Visit Provider Obstetrics & Gynecology
DX: Z87.59 Personal history of other complications of pregnancy, childbirth and the puerperium (principal)
CPT/HCPCS: 36415; 84702

== ENCOUNTER → 2025-07-22 | Outpatient (CLI) | payer MEDICAID, SELFPAY ==
[2025-07-24 21:07] LABS: Chlamydia By Nucleic Acid AMP Negative (Negative); Gonococcus By Nucleic Acid AMP Negative (Negative)
[2025-07-26 11:08] LABS: HPV APTIMA, High Risk Negative (Negative)
== END | disposition home or self-care (01) ==
LOC: LABSPEC 16:26
PROVIDERS: Visit Provider Obstetrics & Gynecology
DX: O09.90 Supervision of high risk pregnancy, unspecified, unspecified trimester (principal); Z3A.00 Weeks of gestation of pregnancy not specified; Z12.4 Encounter for screening for malignant neoplasm of cervix; Z87.42 Personal history of other diseases of the female genital tract
CPT/HCPCS: 87086; 87088; 87491; 87591; 87624; 88175; G0145